=== PATIENT | female | born 2005 | race Hispanic/Latino ===

== ENCOUNTER 2025-08-21 02:27 | Emergency (ER) | payer SELFPAY ==
[2025-08-21 02:45] LABS: #Basophils 0.03 10x3/uL (0.0-0.2); #Eosinophils 0.04 10x3/uL (0.0-0.5); #Monocytes 0.56 10x3/uL (0.0-1.1); #Neutrophils 7.39 10x3/uL (1.5-8.4); %Basophils 0.3 % (0.0-2.0); %Eosinophils 0.4 % (0.0-6.0); %Lymphocytes 25.4 % (18.0-47.0); %Monocytes 5.2 % (0.0-10.0); %Neutrophils 68.5 % (40.0-75.0); Hematocrit 37.1 % (34.9-44.5); Hemoglobin 12.7 g/dL (12.0-15.5); Mean Corpuscular Hemoglobin 28.6 pg (27.0-33.0); Mean Corpuscular Volume 83.6 fL (81.6-98.3); Platelet Count 270 10x3/uL (150-450); Red Blood Cell (RBC) Count 4.44 10x6/uL (3.90-5.03); White Blood Cell (WBC) Count 10.78 10x3/uL (3.5-10.5)
[2025-08-21 02:59] LABS: ALT (SGPT) 11 U/L (Less than 34); AST (SGOT) 18 U/L (11-34); Albumin 3.9 g/dL (3.1-4.5); Alkaline Phosphatase 85 U/L (40-110); Anion Gap 14 mmol/L (10-20); BUN (Urea Nitrogen) 9 mg/dL (7.0-18.7); Bilirubin, Total 0.2 mg/dL (0.3-1.2); Calc. Creatinine Clearance 0 mL/min (70-130); Calcium 8.1 mg/dL (7.8-10.44); Carbon Dioxide 23 mmol/L (22-29); Chloride 105 mmol/L (98-107); Globulin 3.1 g/dL (2.4-3.5); Glucose 146 mg/dL (70-105); Magnesium 1.9 mg/dL (1.6-2.6); Potassium 3.2 mmol/L (3.5-5.1); Sodium 139 mmol/L (136-145)
== END 2025-08-21 09:05 | disposition home or self-care (01) ==
LOC: CSHERS 02:27
DX: F10.129 Alcohol abuse with intoxication, unspecified (principal)
CPT/HCPCS: 36415; 80053; 80307; 83735; 85025; 99284